=== PATIENT | male | born 1970 | race Caucasian/White ===

== ENCOUNTER 2021-09-08 10:17 | Inpatient (IN) | payer SELFPAY ==
[~2021-09-08] VITALS: Ht 175.3 cm; Wt 99.8 kg
[2021-09-08 10:43] LABS: HEMOGLOBIN 15.4 gm/dl (14.0-17.5); RED BLOOD COUNT 4.9 M/UL (4.20-5.50); WHITE BLOOD COUNT 10.5 K/UL (4.5-11.0)
[2021-09-08 11:30] LABS: BUN/CREATININE RATIO 19 (0-10)
[2021-09-08] MEDS ORDERED: MUCINEX600 MG PO (13:28)
[2021-09-08] MEDS ORDERED: AZITHROMYCIN250 MG PO (13:28)
[2021-09-08] MEDS ORDERED: PREDNISONE10 M1 PO (13:28)
[2021-09-09 07:03] LABS: HEMOGLOBIN 14.2 gm/dl (14.0-17.5); RED BLOOD COUNT 4.58 M/UL (4.20-5.50); WHITE BLOOD COUNT 8.9 K/UL (4.5-11.0)
[2021-09-09 08:23] LABS: BUN/CREATININE RATIO 17 (0-10)
[2021-09-10 07:37] LABS: HEMOGLOBIN 13.6 gm/dl (14.0-17.5); RED BLOOD COUNT 4.38 M/UL (4.20-5.50); WHITE BLOOD COUNT 8.3 K/UL (4.5-11.0)
[2021-09-10 08:29] LABS: BUN/CREATININE RATIO 20 (0-10)
[2021-09-11 08:33] LABS: BUN/CREATININE RATIO 20 (0-10)
[2021-09-12 07:34] LABS: BUN/CREATININE RATIO 19 (0-10)
[2021-09-12] MEDS ORDERED: DECADRON6 MG PO (11:09)
[2021-09-12] MEDS ORDERED: PROVENTIL HFA6.7 GM INH (11:09)
[2021-09-12] MEDS ORDERED: DOXYCYCLINE HY100 MG PO (11:09)
[2021-09-12] MEDS ORDERED: OMNICEF 300 MG300 MG PO (11:09)
== END 2021-09-12 15:58 | disposition home or self-care (01) | DRG 177 ==
LOC: ER1 10:17 → CDU 12:54 → MED SURG 4 12:54
PROVIDERS: Physician Assistant; Physician Assistant Medical; ADMIT Internal Medicine
PROC: 8E0ZXY6 Isolation (ICD-10-PCS; principal; 2021-09-08)
PROC: XW033E5 Introduction of Remdesivir Anti-infective into Peripheral Vein, Percutaneous Approach, New Technology Group 5 (ICD-10-PCS; 2021-09-08)
PROC: 3E0333Z Introduction of Anti-inflammatory into Peripheral Vein, Percutaneous Approach (ICD-10-PCS; 2021-09-09)
DX: U07.1 COVID-19 (principal); J12.82 Pneumonia due to coronavirus disease 2019; J96.01 Acute respiratory failure with hypoxia; E87.1 Hypo-osmolality and hyponatremia; M62.82 Rhabdomyolysis; R73.03 Prediabetes; E66.9 Obesity, unspecified; K76.0 Fatty (change of) liver, not elsewhere classified; R74.01 Elevation of levels of liver transaminase levels; K46.9 Unspecified abdominal hernia without obstruction or gangrene; E86.0 Dehydration; E87.6 Hypokalemia; Z82.49 Family history of ischemic heart disease and other diseases of the circulatory system; Z68.32 Body mass index [BMI] 32.0-32.9, adult
CPT/HCPCS: 36415; 36600; 71045; 80048; 80053; 82550; 82553; 82803; 83036; 83605; 83615; 83735; 83874; 83880; 84484; 85025; 85027; 86140; 87040; 93005; 94640; 94664; 94760; 96374; 96375; 99285; J0696; J1100; J1650; J7030; Q9967; U0002